=== PATIENT | female | born 1980 | race Two or more races ===

== ENCOUNTER 2016-11-28 23:42 | Emergency (ER) | payer MEDICAID, OTHER ==
[~2016-11-28] VITALS: Ht 165.1 cm; Wt 63.5 kg
[2016-11-29 01:13] VITALS: BP 124/88
[2016-11-29] MEDS ORDERED: ACETAMINOPHEN/CODEINE#3 (300/30mg) TAB PO ONE (02:15)
== END 2016-11-29 03:26 | disposition home or self-care (01) ==
LOC: ER 23:52
DX: S02.5XXA Fracture of tooth (traumatic), initial encounter for closed fracture (principal); X58.XXXA Exposure to other specified factors, initial encounter; Y93.89 Activity, other specified; Y99.8 Other external cause status; Y92.89 Other specified places as the place of occurrence of the external cause